=== PATIENT | male | born 1965 | race Caucasian/White ===

== ENCOUNTER 2017-12-23 13:49 | Emergency (ER) | payer OTHER ==
--- NOTE | 2017-12-23 14:52 | RAD ---
HISTORY: Right finger injury COMPARISONS: None VIEWS: 3, Frontal, lateral, and oblique views of the fourth digit of the right hand FINDINGS: BONE DENSITY: Normal. BONES: There is a questionable nondisplaced fracture of the tuft of the distal phalanx of the fourth digit. 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 ALIGNMENT: There is no dislocation. SOFT TISSUES: Unremarkable. OTHER FINDINGS: None. IMPRESSION: QUESTIONABLE NONDISPLACED FRACTURE OF THE TUFT OF THE DISTAL PHALANX OF THE FOURTH DIGIT. RECOMMEND CORRELATION WITH SITE OF PAIN.
[2017-12-23 15:42] VITALS: BP 130/75
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
== END 2017-12-23 15:41 | disposition home or self-care (01) ==
LOC: EDBD → ED 13:49
DX: S63.634A Sprain of interphalangeal joint of right ring finger, initial encounter (principal); Y04.0XXA Assault by unarmed brawl or fight, initial encounter; Y92.9 Unspecified place or not applicable; Z72.0 Tobacco use
CPT/HCPCS: 29130; 73140; 99281

== ENCOUNTER 2018-02-06 19:01 | Emergency (ER) | payer OTHER ==
[2018-02-06 20:23] VITALS: BP 129/73
--- NOTE | 2018-02-06 22:01 | ED ---
Medical Screening - HPI Summary HPI Summary: Patient is a 52-year-old male who presents emergency Department requesting medication refills for his Flexeril and gabapentin. Patient states he moved to the area from [place] 3 months ago and has not established a family doctor. He states he finished his prescriptions of these medications yesterday. He states he was prescribed these medications for back pain and neuropathy to his feet. He otherwise denies any complaints today. Symptoms are moderate in severity. No current modifying factors. - History of Current Complaint Chief Complaint: EDPrescriptionNeeded Stated Complaint: NEEDS PRESCRIPTION Time Seen by Provider: 02/06/18 19:38 PMH/Surg Hx/FS Hx/Imm Hx Previously Healthy: Yes Infectious Disease History: No Infectious Disease History: Denies: Traveled Outside the [place] in Last 30 Days - Social History Occupation: Employed Full-time Alcohol Use: Weekly Hx Substance Use: No Substance Use Type: Reports: None Hx Tobacco Use: Yes Smoking Status (MU): Light Every Day Tobacco Smoker Review of Systems Constitutional: Negative Cardiovascular: Negative Respiratory: Negative Gastrointestinal: Negative All Other Systems Reviewed And Are Negative: Yes Physical Exam - Summary Physical Exam Summary: . Triage Information Reviewed: Yes Vital Signs On Initial Exam: Initial Vitals Temp Pulse Resp BP Pulse Ox 98.1 F 68 16 134/81 96 02/06/18 19:12 02/06/18 19:12 02/06/18 19:12 02/06/18 19:12 02/06/18 19:12 Vital Signs Reviewed: Yes Appearance: Positive: Well-Appearing, Well-Nourished Skin: Positive: Warm, Dry Head/Face: Positive: Normal Head/Face Inspection Eyes: Positive: Normal Neurological: Positive: Normal, CN Intact II-III Psychiatric: Positive: Normal Diagnostics - Vital Signs Vital Signs Temp Pulse Resp BP Pulse Ox 02/06/18 20:22 98.0 F 72 15 129/73 99 02/06/18 19:12 98.1 F 68 16 134/81 96 - Laboratory Lab Statement: Any lab studies that have been ordered have been reviewed, and results considered in the medical decision making process. Course/Dx - Course Course Of Treatment: Patient presenting for medication refill. Patient's nurse was able to contact patient's prior pharmacy in [place] and verified the patient's prescriptions were prescribed by his PCP and verified dosages. Agreed to rx one week of fentanyl and Flexeril. Patient was given an permission for that physician production material coordinator to establish a PCP. Patient to call them tomorrow. Patient understands and agrees with plan. - Diagnoses Provider Diagnoses: Medication refill Discharge - Sign-Out/Discharge Documenting (check all that apply): Discharge - Discharge Plan Condition: Good Disposition: HOME Prescriptions: Cyclobenzaprine TAB* [Flexeril 10 MG TAB*] 10 mg PO BEDTIME 7 Days #7 tab Gabapentin CAP(*) [Neurontin 300 CAP(*)] 300 mg PO TID 7 Days #21 cap Referrals: No Primary Care Phys,NOPCP [Primary Care Provider] - Additional Instructions: Call Chioma Arnett, Physician Electronic Tester, to establish a PCP: [phone] Take medications as directed Return to ER if symptoms change or worsen - Billing Disposition and Condition Condition: GOOD Disposition: HOME
== END 2018-02-06 20:22 | disposition home or self-care (01) ==
LOC: ED 19:01
DX: Z76.0 Encounter for issue of repeat prescription (principal)
CPT/HCPCS: 99282

== ENCOUNTER 2018-02-13 17:17 | Emergency (ER) | payer OTHER ==
--- NOTE | 2018-02-13 18:37 | ED ---
Medical Screening - HPI Summary HPI Summary: Patient here with chronic neck and shoulder pain - admits he was seen here and treated 1 week ago with Flexeril and gabapentin and these medications have helped his symptoms. 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 He admits he is working overhead in his symptoms do not allow him to work without these medications. He's been seen in the past by his PCP and gone to physical therapy - they prescribed stretches and isometric exercises - he' s been doing these as well which are helping. He has an appointment with Dr. Celaya and 2 weeks however has known also prescribed these medications in the meantime. He is here for refill. 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 Denies headache, numbness, tingling, weakness. 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 Lives: Alone Alcohol Use: Weekly Hx Substance Use: No Substance Use Type: Reports: None Hx Tobacco Use: Yes Smoking Status (MU): Light Every Day Tobacco Smoker Review of Systems Constitutional: Negative Negative: Fever, Chills, Fatigue Eyes: Negative ENT: Negative Cardiovascular: Negative Respiratory: Negative Gastrointestinal: Negative Positive: no symptoms reported Positive: Arthralgia, Myalgia Skin: Negative Neurological: Negative Negative: Headache, Weakness, Paresthesia, Numbness, Syncope, Slurred Speech Psychological: Normal All Other Systems Reviewed And Are Negative: Yes Physical Exam Triage Information Reviewed: Yes Vital Signs On Initial Exam: Initial Vitals Temp Pulse Resp BP Pulse Ox 98.3 F 79 16 140/74 96 02/13/18 17:32 02/13/18 17:32 02/13/18 17:32 02/13/18 17:32 02/13/18 17:32 Vital Signs Reviewed: Yes Appearance: Positive: Well-Appearing, No Pain Distress, Well-Nourished Skin: Positive: Warm, Skin Color Reflects Adequate Perfusion, Dry Head/Face: Positive: Normal Head/Face Inspection Eyes: Positive: Normal, EOMI, BRISEIDA ENT: Positive: Normal ENT inspection, Hearing grossly normal, Pharynx normal Neck: Positive: Tenderness @ - cervical mm are TTP Respiratory/Lung Sounds: Positive: Breath Sounds Present Cardiovascular: Positive: Pulses are Symmetrical in both Upper and Lower Extremities Musculoskeletal: Positive: Strength/ROM Intact, Pain @ - traps are TTP Neurological: Positive: Normal, Sensory/Motor Intact, Alert, Oriented to Person Place, Time, CN Intact II-III Psychiatric: Positive: Normal Diagnostics - Vital Signs Vital Signs Temp Pulse Resp BP Pulse Ox 02/13/18 17:32 98.3 F 79 16 140/74 96 - Laboratory Lab Statement: Any lab studies that have been ordered have been reviewed, and results considered in the medical decision making process. Course/Dx - Course Course Of Treatment: Will refill medication for next 2 weeks until pt may be seen by PCP as it is providing relief and he has not side effects. Reports he's had this in the past w/o issues. Reviewed importance of implementing exercises he's learned in the past through PT along w/ medication. Also reviewed danger signs and symptoms of when to return to the ED. Patient agrees with plan. - Diagnoses Provider Diagnoses: Muscle spasm, Cervical muscle strain Discharge - Sign-Out/Discharge Documenting (check all that apply): Discharge - Discharge Plan Condition: Stable Disposition: HOME Prescriptions: Cyclobenzaprine TAB* [Flexeril 10 MG TAB*] 10 mg PO BEDTIME 14 Days #14 tab Gabapentin CAP(*) [Neurontin 300 CAP(*)] 300 mg PO TID 14 Days #42 cap Patient Education Materials: Cervical Strain (ED), Muscle Spasm (ED) Referrals: Bernard Celaya MD [Medical Doctor] - Additional Instructions: Continue exercises along with heat/ice as needed You may try topical analgesics as needed as well - biofreeze, bengay, salonpas patches, etc Take medications as directed Follow-up with PCP in 2 weeks *If worse, return to ED - Billing Disposition and Condition Condition: STABLE Disposition: HOME
[2018-02-13 18:46] VITALS: BP 120/71
== END 2018-02-13 18:44 | disposition home or self-care (01) ==
LOC: ED 17:17
DX: S16.1XXA Strain of muscle, fascia and tendon at neck level, initial encounter (principal); M62.838 Other muscle spasm; X50.0XXA Overexertion from strenuous movement or load, initial encounter; Y92.9 Unspecified place or not applicable; Z72.0 Tobacco use
CPT/HCPCS: 99281